=== PATIENT | male | born 1995 | race Hispanic/Latino ===

== ENCOUNTER 2022-07-29 04:31 | Emergency (ER) | payer OTHER ==
[~2022-07-29] VITALS: Ht 170.2 cm; Wt 127.9 kg
[2022-07-29] MEDS ORDERED: MORPHINE 4 MG SYG IVP ONE (05:00)
[2022-07-29] MEDS ORDERED: ONDANSETRON 4MG INJ IVP ONE (05:00)
[2022-07-29 05:06] LABS: BASOPHILS % (AUTO) 0.4 % (0.0-5.0); HEMATOCRIT 41.5 % (42-54); LYMPHOCYTES % (AUTO) 33.3 % (21.0-51.0); MEAN CORPUSCULAR HEMOGLOBIN 28.6 pg (27.0-33.0); MEAN CORPUSCULAR HGB CONC 33.3 g/dL (32.0-36.0); MEAN CORPUSCULAR VOLUME 86.1 fL (79-99); MONOCYTES % (AUTO) 7.7 % (3.0-13.0); NEUTROPHILS % (AUTO) 55.3 % (40.0-77.0); PLATELET COUNT (AUTO) 365 K/uL (130-400); RED BLOOD CELL COUNT(AUTO) 4.82 MIL/uL (4.50-6.20); RED CELL DISTRIBUTION WIDTH 13.2 % (11.0-15.5)
[2022-07-29 05:16] LABS: CREATININE 1.1 mg/dL (0.5-1.5); POTASSIUM 3.9 mmol/L (3.5-5.1)
[2022-07-29 05:21] LABS: ALBUMIN 3.4 g/dL (3.5-5.0); TOTAL PROTEIN, SERUM 8.2 g/dL (6.0-8.3)
[2022-07-29] MEDS ORDERED: IOHEXOL-350 75 ML VIAL IV ONE (08:41)
[2022-07-29] MEDS ORDERED: MORPHINE 2 MG SYG IVP ONE (09:00)
[2022-07-29] MEDS ORDERED: LACTATED RINGERS 1000ML 1,000 ML IV ONE (09:00)
[2022-07-29 12:44] VITALS: BP 120/75
== END 2022-07-29 12:45 | disposition home or self-care (01) ==
LOC: EDH 04:31
DX: K94.01 Colostomy hemorrhage (principal); R10.84 Generalized abdominal pain; Z60.2 Problems related to living alone
CPT/HCPCS: 99285; 74177; 96374; 96361; 96375; 80053; 85025; 36415; 96376; J7120; J2405; J2270; Q9967

== ENCOUNTER 2024-12-29 03:14 | Emergency (ER) | payer OTHER ==
[~2024-12-29] VITALS: Ht 172.7 cm; Wt 135.2 kg
--- NOTE | 2024-12-29 03:17 | NUR ---
UA CUP PROVIDED
--- NOTE | 2024-12-29 03:21 | NUR ---
UA COLLECTED AND SENT
[2024-12-29 03:38] LABS: IMMATURE GRANULOCYTE ABSOLUTE 0.03 K/uL (0-1); NUCLEATED RED BLOOD CELLS 0.0 % (0.0-0.19); PLATELET COUNT (AUTO) 329 K/uL (130-400); RED BLOOD CELL COUNT(AUTO) 4.99 MIL/uL (4.50-6.20); RED CELL DISTRIBUTION WIDTH 12.5 % (11.0-15.5); WHITE BLOOD COUNT (AUTO) 8.3 K/uL (4.8-10.8)
[2024-12-29 03:39] LABS: APPEARANCE,URINE CLEAR (CLEAR); GLUCOSE, URINE (UA) >=1000 mg/dL (NEGATIVE); LEUKOCYTE ESTERASE ,URINE NEGATIVE Leu/uL (NEGATIVE); NITRATE,URINE NEGATIVE (NEGATIVE); OCCULT BLOOD,URINE NEGATIVE (NEGATIVE)
--- NOTE | 2024-12-29 03:39 | ERN ---
ED Note History of Present Illness Stated Complaint: ABD PAIN, CONSTIPATION Chief Complaint: Multiple Complaints Time Seen by MD: 03:31 Dictation: This is a 29-year-old male who is morbidly obese presented to the emergency room with a complaints of left lower quadrant abdominal pain for the past 3 days. He gives a history of constipation his last bowel movement was 2 days ago. He apparently took Tylenol No. 3 last night. No history of any nausea vomitings diarrhea. Of note patient had history of diverticulitis and underwent bowel resection in [place] on 07/04/2022. No history of any hematemesis or bleeding per rectum. Temperature 98.4 pulse 121 respirations 20 blood pressure 177/90 with a pulse oximetry of 97% on room air Chronic medical problems include diabetes mellitus, hypertension, high cholesterol, history of diverticulitis Allergies: Coded Allergies: No Known Allergies (Unverified Allergy, Unknown, 07/29/22) Home Meds Active Scripts Sennosides/Docusate Sodium (Senna Plus 8.6-50 mg Tablet) 8.6 Mg-50 Mg Tablet, 2 TAB PO HS for 14 Days, #28 TAB 0 Refills Prov:AXEL TALBOT MD 12/29/24 Past Medical History Past Medical History: No Pertinent History, Diabetes-Type II, Diverticulitis, High Cholesterol, Hypertension, Pancreatitis Surgical History: Other Surgical History Other: BOWEL RESECTION; OSTOMY ,COLORECTAL Family History: Negative Social History: Negative, Lives alone RN Note Reviewed/Agreed w/PFSH: Yes Review of System Dictation Constitutional: Negative for fever,chills, and weight loss Eyes: Negative for injury, pain,redness, and discharge ENT: Negative for injury,pain or swelling Cardiovascular: Negative for chest pain, palpitations, and edema Respiratory: Negative for shortness of breath, cough, and wheezing, Abdomen/GI: Positive for left lower quadrant abdominal pain, and constipation deniesnausea, vomiting, diarrhea, Back: Negative for injury and pain : Negative for injury, bleeding and discharge MS/Extremity: Negative for injury and deformity Skin: Negative for rash, and discoloration Neuro: Negative for headache, weakness, numbness, tingling, and seizure Psych: Negative for suicide ideation, homicidal ideation, and hallucinations Initial Vital Sign VS Vital Signs Date Time Temp Pulse Resp B/P (MAP) Pulse Ox O2 Delivery O2 Flow Rate FiO2 12/29/24 03:16 98.4 121 20 177/90 97 Room Air 12/29/24 03:36 0 21 Physical Exam Dictation General: awake, alert, NAD morbidly obese Head/Face: Normocephalic, atraumatic Eyes: PERRL, EOMI, vision at baseline ENT: oral cavity clear, TMs clear, no signs of infection Neck: Trachea midline, supple, no nuchal rigidity Cardiovascular: RRR, normal S1/S2, No MRGs, no JVD Respiratory: CTAB, no respiratory distress, No rales or wheezes Abdomen: Soft, non-tender, non-distended, normal bowel sounds, no guarding or rebound. Skin: Warm, dry, normal turgor, no rash MS/Extremity: Pulses equal, no cyanosis, neurovascular intact, FROM Neuro: COAx4, GCS 15, strength 5/5, CN 2-12 intact, normal cerebellar exam, normal gait, Psych: Normal behavior, mood, and affect normal Extremities-trace edema without any palpable cords, Homans sign is negative Results (Laboratory/Radiology) Laboratory/Radiology Laboratory Tests Test 12/29/24 03:21 12/29/24 03:35 Urine Color LIGHT-YELLOW (YELLOW) Urine Appearance CLEAR (CLEAR) Urine pH 6.0 (5.0-8.0) Urine Specific [place] 1.036 (1.001-1.031) Urine Protein NEGATIVE mg/dL (NEGATIVE) Urine Glucose (UA) >=1000 mg/dL (NEGATIVE) H Urine Ketones 5 mg/dL (NEGATIVE) H Urine Occult Blood NEGATIVE (NEGATIVE) Urine Nitrate NEGATIVE (NEGATIVE) Urine Bilirubin NEGATIVE mg/dL (NEGATIVE) Urine Urobilinogen 0.2 mg/dL (0.2-1.0) Urine Leukocyte Esterase NEGATIVE [place]ie/uL Urine RBC 0-1 /HPF (0-1) Urine WBC 0-1 /HPF (0-1) Urine Squamous Epithelial Cells RARE /HPF (0-2) Urine Bacteria RARE /HPF (None Seen) White Blood Count 8.3 K/uL (4.8-10.8) Red Blood Count 4.99 MIL/uL (4.50-6.20) Hemoglobin 14.4 g/dL (14.0-18.0) Hematocrit 41.2 % (42-54) L Mean Corpuscular Volume 82.6 fL (79-99) Mean Corpuscular Hemoglobin 28.9 pg (27.0-33.0) Mean Corpuscular Hemoglobin Concent 35.0 g/dL (32.0-36.0) Red Cell Distribution Width 12.5 % (11.0-15.5) Platelet Count 329 K/uL (130-400) Mean Platelet Volume 9.4 fL (7.5-10.5) Immature Granulocyte % (Auto) 0.4 % (0-1) Neutrophils (%) (Auto) 50.3 % (40.0-77.0) Lymphocytes (%) (Auto) 34.6 % (21.0-51.0) Monocytes (%) (Auto) 10.0 % (3.0-13.0) Eosinophils (%) (Auto) 4.2 % (0.0-8.0) Basophils (%) (Auto) 0.5 % (0.0-5.0) Neutrophils # (Auto) 4.2 K/uL (1.8-7.7) Lymphocytes # (Auto) 2.9 K/uL (1.0-4.8) Monocytes # (Auto) 0.8 K/uL (0.1-1.0) Eosinophils # (Auto) 0.35 K/uL (0.00-0.70) Basophils # (Auto) 0.04 K/uL (0.00-0.20) Absolute Immature Granulocyte (auto 0.03 K/uL (0-1) Nucleated Red Blood Cells 0.0 % (0.0-0.19) Sodium Level 135 mmol/L (136-145) L Potassium Level 4.0 mmol/L (3.5-5.1) Chloride Level 100 mmol/L (101-111) L Carbon Dioxide Level 27 mmol/L (21-32) Blood Urea Nitrogen 11 mg/dL (7-18) Creatinine 0.9 mg/dL (0.5-1.3) Glomerular Filtration Rate Calc 117 mL/min (>90) Random Glucose 289 mg/dL (70-105) H Total Calcium 9.1 mg/dL (8.5-10.1) Lipase 26 U/L (16-77) Labs Reviewed?: Yes CT Scan Comment: REASON: severe LLQ abd pain. previous Diverticulitis and bowel resection ORDERING PHYSICIAN: AXEL TALBOT MD PROCEDURE: ABD PEL W - CT ABDOMEN/PELVIS W/CONTRAST EXAM: CT Abdomen and Pelvis with IV contrast CLINICAL HISTORY: severe LLQ abd pain. previous Diverticulitis and bowel resection TECHNIQUE: Axial computed tomography images of the abdomen and pelvis with intravenous contrast. CONTRAST: with intravenous contrast. COMPARISON: None provided. FINDINGS: LUNG BASES: The lung bases appear clear. No pleural effusions are seen. LIVER: Enlarged liver with fatty infiltration.. GALLBLADDER AND BILE DUCTS: The gallbladder appears within normal limits. No radioopaque gallstones are seen. No biliary ductal dilatation is evident. PANCREAS: Unremarkable. SPLEEN: Unremarkable. ADRENAL GLANDS: Unremarkable. KIDNEYS, URETERS, AND BLADDER: The kidneys appear within normal limits. There is no hydronephrosis or hydroureter. No urinary calculi are seen. STOMACH AND BOWEL: Unremarkable appearance of the stomach and bowel. No evidence of bowel obstruction. No evidence suggesting enteritis or colitis. Surgical clips in the sigmoid colon. Small fat-containing umbilical hernia. No bowel containing hernia. APPENDIX: Normal appendix. PERITONEUM: No free fluid. No free air. LYMPH NODES: No lymphadenopathy is evident. REPRODUCTIVE: Unremarkable as visualized. VASCULATURE: No evidence of abdominal aortic aneurysm. BONES: No aggressive appearing osseous lesion. No acute osseous pathology evident. IMPRESSION: No bowel obstruction or inflammation. Normal appendix. Normal kidneys. No hydronephrosis. Small fat-containing umbilical hernia. No bowel containing hernia. Enlarged liver with fatty infiltration. /[place] DICTATED BY: GERTRUDE STOKES MD DATE: 12/29/24726 ED Course ED Course Orders Procedure Category Date Status Time Vital Signs Per CPOE 12/29/24 Transmitted Routine 03:20 Saline Lock Iv CPOE 12/29/24 Transmitted 03:20 Cbc With Differential LAB 12/29/24 Complete 03:20 Lipase LAB 12/29/24 Complete 03:20 Urinalysis Profile LAB 12/29/24 Complete 03:20 Basic Metabolic Panel LAB 12/29/24 Complete 03:20 0.9% Nacl 500ml PHA 12/29/24 Complete Iv.Soln (Ns 500ml 04:00 Ct Abdomen/Pelvis CT 12/29/24 Resulted W/Contrast 04:27 Ketorolac PHA 12/29/24 Complete Tromethamine 30mg/Ml 04:30 Hydromorphone 0.5mg PHA 12/29/24 Complete Syg (Dilaudid 0.5mg 05:30 Iohexol (Omnipaque) PHA 12/29/24 Complete 05:36 Current Medications Medications (Trade) Dose Ordered Sig/[place] Route PRN Reason Start Time Stop Time Status Last Admin Dose Admin Hydromorphone HCl (DiLAUDid 0.5MG INJ) 0.5 mg ONCE ONCE IVP 12/29/24 05:30 12/29/24 05:31 DC Iohexol (Omnipaque) 75 ml STK-MED ONCE IV 12/29/24 05:36 12/29/24 05:36 DC Ketorolac Tromethamine (toRADol) 30 mg ONCE ONCE IVP 12/29/24 04:30 12/29/24 04:31 DC 12/29/24 04:32 Sodium Chloride 500 ml @ 0 mls/hr ONCE ONCE IV 12/29/24 04:00 12/29/24 04:01 DC 12/29/24 03:46 Vital Signs Date Time Temp Pulse Resp B/P (MAP) Pulse Ox O2 Delivery O2 Flow Rate FiO2 12/29/24 05:25 82 18 128/76 97 Room Air* 0 21 12/29/24 03:36 98 18 148/85 97 Room Air* 0 21 12/29/24 03:16 98.4 121 20 177/90 97 Room Air We will perform diagnostic labs, advanced imaging and administer medications according to the patient's complaint. Once the results are available, will review and personally interpreted the labs to rule out any acute life- threatening emergency the trach require immediate intervention and treatment. I will then re-evaluate the patient after treatment and diagnostic exams have return to determine whether the patient requires any further testing, can safely be discharged home or need further admission to hospital for additional treatment and evaluation. 4:24 a.m. labs reviewed CBC is with a normal limits BNP 7 is normal except for the glucose of 289. Lipase is 26 and urinalysis is unremarkable. In view of extensive history of diverticulitis requiring bowel resection colostomy and eventual colostomy reversal, tenderness in the left lower quadrant area I recommended to pursue a CT scan of the abdomen and pelvis to better evaluate the left lower quadrant in the colonic area. If there is no evidence of any diverticulitis, we will consider discharge with bowel regimen. 6:[address] scan of the abdomen and pelvis reviewed no evidence of any diverticulitis or acute intra-abdominal pathology was noted. We will discharge patient on senna plus Colace. Counseling done on dietary modifications and avoiding seeds and nuts and constipation Patient had a large bowel movement in the abdominal pain has resolved. Medical Decision Making MDM Differential diagnosis: Constipation, diverticulitis, renal stone, colitis Rationale: Tests considered and ordered secondary to shared decision making include: Previous outside records reviewed: Old ER visits. Risk of complication and/or morbidity or mortality of patient management: None Medications-Per medication reconciliation Need for hospitalization: Patient does not meet criteria for hospitalization. Need for emergency major/minor surgery: No There are no social concerns with this patient. Prescription drug management Prescriptions will include symptomatic care Patient's prior external medical records from other ER visits were reviewed by me as indicated. Prior testing and results from previous visits were reviewed. Prior tests were taken into account with medical decision making and resource utilization, independent historian/historians were used to obtain complete medical history. I independently interpreted the test that were performed, results were reviewed by me and considered findings on radiology if ordered. Medical management and examination interpretation discussions were had by me with other qualified healthcare professionals as indicated for the patient's care. Problem List Problem List: (1) Left lower quadrant abdominal pain (2) Constipation (3) History of diverticulitis DX & DISP Disposition: Discharge Departure Impression: Primary Impression: Left lower quadrant abdominal pain Additional Impressions: Constipation, History of diverticulitis Condition: Stable Scripts Sennosides/Docusate Sodium (Senna Plus 8.6-50 mg Tablet) 8.6 Mg-50 Mg Tablet 2 TAB PO HS for 14 Days, #28 TAB 0 Refills Prov: AXEL TALBOT MD 12/29/24 Additional Instructions: Patient and the caregiver have been informed of all the diagnostic tests and the imaging conducted during the today's visit to the emergency room and has verbalized understanding of the results I have personally reviewed and interpreted all diagnostic exams performed here in the ER today as well as the vital signs documented by the nursing staff. The patient is now being discharged to home and should follow up with the primary care physician or the specialist as directed by the ER staff. Follow-up with primary care provider in 1 to 2 days. Take medications as directed here in the emergency room. Okay to continue home medications unless otherwise discussed during your visit in the emergency room today. Return to your nearest emergency room if symptoms worsen or if there is no improvement. Call 911 if you need immediate assistance. Take Tylenol or Motrin [id number] as needed and if no contraindications are present. Increase oral hydration. A wound culture or urine culture was ordered here in the emergency room department please follow-up with primary care provider and advise them to get repeat ports from our facility. If you had any Jeff wrap/splints that were applied here, please do not remove them until you see your primary care or specialty. Referrals: SELF,REFERRAL (PCP) AXEL TALBOT MD Dec 29, 2024 03:39
[2024-12-29 03:42] LABS: ADD UA MICROSCOPIC YES
[2024-12-29 03:45] LABS: SQUAMOUS EPITHELIAL CELL,UR RARE /HPF (0-2)
[2024-12-29 03:45] LABS: CREATININE 0.9 mg/dL (0.5-1.3); GLOMERULAR FILTR. RATE CALC 117.0 mL/min (>90); GLUCOSE,RANDOM 289.0 mg/dL (70-105); SODIUM SERUM 135.0 mmol/L (136-145); UREA NITROGEN, BLOOD 11.0 mg/dL (7-18)
[2024-12-29] MEDS: 0.9% NACL 500ML IV.SOLN 500 ML IV ONE (03:46)
--- NOTE | 2024-12-29 05:25 | NUR ---
PATIENT REPORTS ABD PAIN NO RESOLVED AFTER HAVING A BOWEL MOVEMENT
[2024-12-29] MEDS ORDERED: IOHEXOL-350 75 ML VIAL IV ONE (05:36)
--- NOTE | 2024-12-29 06:28 | HMCIMG ---
EXAM: CT Abdomen and Pelvis with IV contrast CLINICAL HISTORY: severe LLQ abd pain. previous Diverticulitis and bowel resection TECHNIQUE: Axial computed tomography images of the abdomen and pelvis with intravenous contrast. CONTRAST: with intravenous contrast. COMPARISON: None provided. FINDINGS: LUNG BASES: The lung bases appear clear. No pleural effusions are seen. LIVER: Enlarged liver with fatty infiltration.. GALLBLADDER AND BILE DUCTS: The gallbladder appears within normal limits. No radioopaque gallstones are seen. No biliary ductal dilatation is evident. PANCREAS: Unremarkable. SPLEEN: Unremarkable. ADRENAL GLANDS: Unremarkable. KIDNEYS, URETERS, AND BLADDER: The kidneys appear within normal limits. There is no hydronephrosis or hydroureter. No urinary calculi are seen. STOMACH AND BOWEL: Unremarkable appearance of the stomach and bowel. No evidence of bowel obstruction. No evidence suggesting enteritis or colitis. Surgical clips in the sigmoid colon. Small fat-containing umbilical hernia. No bowel containing hernia. APPENDIX: Normal appendix. PERITONEUM: No free fluid. No free air. LYMPH NODES: No lymphadenopathy is evident. REPRODUCTIVE: Unremarkable as visualized. VASCULATURE: No evidence of abdominal aortic aneurysm. BONES: No aggressive appearing osseous lesion. No acute osseous pathology evident. IMPRESSION: No bowel obstruction or inflammation. Normal appendix. Normal kidneys. No hydronephrosis. Small fat-containing umbilical hernia. No bowel containing hernia. Enlarged liver with fatty infiltration. /[place]
[2024-12-29] MEDS ORDERED: SENN-316 PO (06:36)
[2024-12-29 06:39] VITALS: BP 135/81; PULSE 93; RESP 18; TEMP 98.4; O2SAT 97
== END 2024-12-29 06:45 | disposition home or self-care (01) ==
LOC: EDH 03:14
DX: R10.32 Left lower quadrant pain (principal); Z79.899 Other long term (current) drug therapy
CPT/HCPCS: 99285; 74177; 96374; 80048; 83690; 85025; 81001; 36415; J1885; J7040; Q9967